=== PATIENT | male | born 1975 | race Caucasian/White ===

== ENCOUNTER 2016-08-25 16:50 | Emergency (ER) | payer BC ==
[2016-08-25] MEDS ORDERED: LAMICTAL100 M2 PO (18:05)
[2016-08-25] MEDS ORDERED: MOBIC7.5 M2 PO (19:20)
== END 2016-08-25 19:30 ==
LOC: EDMED 16:50
DX: M25.512 Pain in left shoulder (principal)
CPT/HCPCS: J1885